=== PATIENT | female | born 2000 | race American Indian/Alaskan Native ===

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

== ENCOUNTER 2019-09-15 16:22 | Inpatient (IN) | payer MEDICAID ==
[2019-09-15] MEDS ORDERED: Misoprostol 400 MCG (4 X 100 MCG TAB) RECTAL PRN (17:43)
[2019-09-15] MEDS ORDERED: Sodium Chloride 0.9% 10 ML Syringe FLUSH PRN (17:43)
[2019-09-15] MEDS ORDERED: Ondansetron 4 MG/2 ML SDV IVPUSH PRN (17:43)
[2019-09-15] MEDS ORDERED: Carboprost Tromethamine 250 MCG/1 ML Amp IM PRN (17:43)
[2019-09-15] MEDS ORDERED: Tranexamic Acid 1,000 MG in Sodium Chloride 0.9% 100 ML IV PRN (17:43)
[2019-09-15] MEDS ORDERED: Lactated Ringers 1,000 ML IV ONE (17:43)
[2019-09-15] MEDS ORDERED: Acetaminophen 325 MG Tab PO PRN (17:43)
[2019-09-15] MEDS ORDERED: Lidocaine 1% 30 ML SDV INJECT PRN (17:43)
[2019-09-15] MEDS ORDERED: Methylergonovine 0.2 MG/1 ML Amp IM PRN (17:43)
[2019-09-15] MEDS ORDERED: Oxytocin/Normal Saline 30 UNIT/500 ML BAG IV SCH (17:45)
[2019-09-15] MEDS ORDERED: metroNIDAZOLE 250 MG Tab PO ONE (18:00)
[2019-09-15] MEDS: Lactated Ringers 1,000 ML IV SCH (18:12)
[2019-09-15] MEDS: Oxytocin/Normal Saline 30 UNIT/500 ML BAG IV SCH (18:13)
--- NOTE | 2019-09-15 19:32 | OBOUT ---
DATE: 09/15/2019 DATE AND TIME OF NST: 09/15/2019. Time, 1632 to 1652. REASON FOR NST: 1. Intrauterine at 37-5/7 weeks, by 6-week ultrasound. 2. Spontaneous rupture of membranes at approximately 10 a.m.. 3. History of trichomoniasis and positive on admission. Treated in the past. 4. History of BV, treated in the past. 5. Positive UDS for THC at [facility] in the past. 6. GBS negative. 7. G1, P0. NST INTERPRETATION: During this time period, heart tone baseline was approximately 135 and least two 15 x 15 beats per minute accelerations, making this strip reactive and also reassuring. Tocometer reveals forward contractions, minimally felt by the patient. ASSESSMENT: Reactive and reassuring with some contractions minimally felt by the patient. PLAN: At the current time of dictation, awaiting labs. AmniSure was positive and wet prep was notable for trichomoniasis and waiting rapid COVID at this point in time. [facility] /[id number] MTDAnnette
--- NOTE | 2019-09-15 20:17 | HP ---
PATIENT IDENTIFICATION: Penelope Chavira is a 19-year-old, G1, P0, intrauterine at 37-5/7 weeks by a 6-week ultrasound, who presents with vaginal leaking. HISTORY OF PRESENT ILLNESS: Approximately at 10:00 a.m., on the date of admission, the patient was sleeping, woke up, and noticed vaginal leaking, described as clear fluid, kept coming on, time made it worse, described as clear in nature, and associated with mild cramps felt in the lower abdomen. With this in context, she has had a history of trichomoniasis during this and was positive upon admission and history of BV as well and states that she has been treated in the past. She also had a positive urine drug screen for THC at [facility] in the past, and she is GBS negative in the third trimester. Records were called for, reviewed as below, and supplemented by patient history. [facility]: ABO, blood type O positive, negative antibody, rubella immune, RPR nonreactive, negative hepatitis B surface antigen, hep C, HIV, GC, and Chlamydia. Wet prep positive for trich, and treated in the past. Throughout this urine drug screen positive for THC. One-hour GTT was 112. AFPM-4 screen was negative and GBS was negative on 09/03/2019. ALLERGIES: None. MEDICATIONS: vitamins. PAST MEDICAL/PAST SURGICAL HISTORY: Remarkable for having history of pneumoniae; bronchitis; angioedema, treated with steroids in the past. Cutting with anxiety and depression. FAMILY HISTORY: Sister with hereditary spherocytosis. Negative family history of bleeding problems, anesthesia problems, or defects otherwise. SOCIAL HISTORY: The patient lives in [place] with the father of baby, Simran Monroy. She has a [place] as a pet. She denies any alcohol, tobacco, or drug use, although she had a positive urine drug screen in the past. REVIEW OF SYSTEMS: Otherwise reviewed and felt to be noncontributory other than above. OBJECTIVE: Vital Signs: Blood pressure 124/75, heart rate 88, and the patient feels afebrile. Appearance: Female appears stated age, acting appropriate. Nontoxic appearance. HEENT: Head is atraumatic EOMs are intact. PERRLA. No scleral icterus. No obvious otorhinorrhea. Mucous membranes moist. Neck: No obvious tenderness. Lungs: Clear to auscultation bilaterally. No increased work of breathing. Heart: S1 and S2. Regular rate and rhythm. Abdomen: Gravid. Mickey's indeterminate. Nontender and nondistended. Bowel sounds are positive. No organomegaly, pulsatile masses, or obvious hernias. No rebound or guarding with monitors applied. Genitourinary: Normal external female genitalia. Normal position and presentation of urethra. Vaginal exam reveals it to be 1.5 to 2 cm, 80% effaced, 0 to -1 station, vertex suspected, and leaking some clear fluid with mild bloody show. Extremities: No peripheral edema. Deep tendon reflexes 2 to 3 out of 4 bilaterally and symmetric in lower extremities. Psych: Mood and affect congruent. Judgment and insight intact. Skin: Without any cyanosis, clubbing, or jaundice. INVESTIGATIONS: AmniSure was positive. Rapid COVID KACI test was negative for COVID-19, and her wet prep was remarkable for a few clue cells and trichomoniasis that was noted. NST is found to be reactive and reassuring with heart tone baseline of around the 135 range. Tocometer reveals contractions every 3 to 5 minutes on an average. ASSESSMENT: 1. Intrauterine at 37-5/7 weeks by a 6-week ultrasound. 2. Spontaneous rupture of membranes at approximately 10:00 a.m. on date of admission. 3. History of trichomoniasis in the treated, and positive on admission. 4. History of bacterial vaginosis in the , treated. 5. Positive urine drug screen for tetrahydrocannabinol at [facility] early in . 6. Group B Streptococcus negative. 7. 1, para 0. PLAN: The patient will be admitted. Labs will be done including urine drug screen. Due to it being approximately 8 hours since rupture of membranes and no what appeared to be any true active labor pattern, we will start Pitocin 2 milliunits, up by 2 milliunits per minute every 30 minutes, and follow clinically and closely. Plans were discussed the patient. She understands and agrees. Please see orders for further details as well. [facility] /[id number] GOUVERNEUR HEALTHAnnette
[2019-09-15] MEDS ORDERED: fentaNYL 100 MCG/2 ML SDV IVPUSH PRN (23:07)
[2019-09-15] MEDS ORDERED: hydrOXYzine HCl 25 MG Tab PO PRN (23:07)
[2019-09-16] MEDS: Lactated Ringers 1,000 ML IV SCH ×3 (02:33→15:59)
--- NOTE | 2019-09-16 11:28 | PN ---
DATE: 09/16/2019 SUBJECTIVE: The patient continues to leak vaginal fluid. Last night, she did have some contractions that she said were somewhat strong, felt in her lower abdomen. OBJECTIVE: Pitocin maxed out at 16 milliunits per minute per nurse, was stopped for approximately at least an hour as she had contractions every 1-1/2 minutes at times. heart tones in the 130s and felt to be reassuring. Tocometer reveals contractions now 4 minutes apart on average. Vaginal exam reveals her to be 2 cm, 80% to 90% effaced, 0 to -1 station, vertex suspected. An IUPC was placed after discussion with the patient. ASSESSMENT: 1. Intrauterine , now at 37 and 6/7 weeks by 6 weeks ultrasound with spontaneous rupture of membranes at 10 a.m. yesterday, so nearing approximately 22 hours of rupture of membranes, with continued leaking. 2. History of trichomoniasis and bacterial vaginosis in the past and treated in the past and treated here upon admission. 3. Positive urine drug screen for THC at [facility] in the past. Urine drug screen negative yesterday on admission. 4. Group B Streptococcus negative. 5. G1, P0. PLAN: Discussed with the patient proceeding with IUPC, Pitocin augmentation. We will continue to follow clinically and closely at this point in time. We will watch for any signs and symptoms of infection, fever, tachycardia, or other concerns. The patient understands and agrees with the above. [facility] /[id number]
[2019-09-16] MEDS ORDERED: Sodium Bicarbonate 4.2% 2.5 MEQ/5 ML SDV ONE ×2 (11:59→15:45)
[2019-09-16] MEDS ORDERED: Sodium Chloride 0.9% 20 ML SDV ONE (11:59)
[2019-09-16] MEDS ORDERED: fentaNYL 100 MCG/2 ML SDV ITHECAL ONE (11:59)
[2019-09-16] MEDS ORDERED: EPINEPHrine 1 MG/1 ML Amp ONE (15:45)
[2019-09-16] MEDS ORDERED: fentaNYL 100 MCG/2 ML SDV ONE (15:45)
--- NOTE | 2019-09-16 16:03 | PCM.SN.2 ---
- Free Text/Narrative Note: Intrathecal. Sitting position, sterile prep and drape. 1% lidocaine w bicarb for skinwheal to L2 L3 interspace. Introducer, 24 ga pencan x 1. Pos CSF, neg heme, neg parasthesia. 0.1 ml pf 1:1000 epi, 20 mcg pf sufenta. 30 mcg pf fentanyl, 0.4 ml pf ns and 6 mg of 0.75% pf bupivacaine injected after CSF aspiration. Pt to L lateral position. Procedure time 1545 to 1615
[2019-09-16] MEDS: Oxytocin/Normal Saline 30 UNIT/500 ML BAG IV SCH ×2 (18:08→19:42)
[2019-09-16] MEDS ORDERED: cefTRIAXone 1 GM in Sodium Chloride 0.9% 50 ML IV ONE (18:29)
--- NOTE | 2019-09-16 19:39 | PN ---
DATE: 09/16/2019 SUBJECTIVE: The patient has been feeling contractions, requesting something for pain. OBJECTIVE: heart tones in the 120s to 130s range. Tocometer reveals contractions every 1-1/2 minutes. IUPC has been placed. Pitocin has been increased. Last blood pressure 133/69, heart rate 63. The patient is afebrile. Vaginal exam reveals her to be 3 cm, 80% effaced, 0 to negative 1 station, vertex suspected, and bag of water was felt, and artificial rupture of membranes done with [place] yields a minimal amount of clear fluid with mild bloody show noted with exam on examiner's fingers. ASSESSMENT AND PLAN: Intrauterine now at 37-6/7 weeks, spontaneous rupture of membranes at 10 a.m. yesterday with suspected second bag noted today with exam as above with artificial rupture of membranes yielding some fluid. We will continue on Pitocin augmentation. IUPC is in place. For pain, we will give fentanyl and follow clinically and closely. The patient understands and agrees with the above treatment plan. [facility] /[id number]
[2019-09-17] MEDS ORDERED: Benzocaine/Menthol 20%-0.5% Spray 56 GM Canister TOP PRN ×2 (00:50→07:21)
[2019-09-17] MEDS: Ibuprofen 800 MG Tab PO PRN ×3 (01:24→21:12)
[2019-09-17] MEDS ORDERED: Zolpidem 5 MG Tab PO PRN (07:21)
[2019-09-17] MEDS ORDERED: Sodium Chloride 0.9% 10 ML Syringe FLUSH PRN (07:21)
[2019-09-17] MEDS ORDERED: Simethicone 80 MG Tab.Chew PO PRN (07:21)
[2019-09-17] MEDS ORDERED: Oxytocin 10 Units/1 ML SDV IM PRN (07:21)
[2019-09-17] MEDS: Ferrous Sulfate 325 MG Tab PO SCH (08:31)
[2019-09-17] MEDS: Docusate Sodium 100 MG Cap PO PRN ×2 (08:31→21:09)
[2019-09-17] MEDS: Prenatal Multivitamin with Calcium/Folic Acid/Iron Tab PO SCH (08:32)
--- NOTE | 2019-09-17 09:13 | PN ---
DATE: 09/17/2019 day #1. SUBJECTIVE: The patient is tolerating p.o., was ambulating, urinating, passing flatus. States her bleeding is "normal." She denies any chest pain, shortness of breath, or lightheadedness. OBJECTIVE: Vital Signs: Temperature 98.2, heart rate 80, blood pressure 102/58, respiratory rate 16. Lungs: Clear to auscultation bilaterally. Heart: S1, S2. Regular rate and rhythm. Abdomen: Firm uterus, -2 below umbilicus. Extremities: No peripheral edema. No calf pain. LABORATORY DATA: White cell count 15.7, hemoglobin 9.4, platelets 272. ASSESSMENT AND PLAN: 1. day #1, status post spontaneous vaginal delivery, complicated by hemorrhage with uterine atony, retained placental membranes requiring bimanual and finger uterine curettage, and also received treatment of Cytotec 800 mcg rectally. 2. Anemia, acute blood loss. Hemoglobin dropped from 11.3 to 9.4. Currently, asymptomatic. Vital signs stable. Continue to follow clinically and closely. Start iron today, and will ambulate, and follow for any symptoms. Possible discharge tomorrow. Discussed with the patient. [facility] /[id number]
--- NOTE | 2019-09-17 11:21 | PN ---
DATE: 09/16/2019 SUBJECTIVE: The patient is somewhat comfortable status post intrathecal. OBJECTIVE: heart tones in the 130s to 140s range with variable deceleration noted when catheterization of the bladder occurred. Vaginal exam reveals her to be anterior lip. Blood pressure 120/60, heart rate 57. ASSESSMENT/PLAN: Nearing second stage of labor with deceleration noted. Bladder will be catheterized. We will evaluate the patient in second stage of labor. We will start pushing and follow clinically and closely thereafter. [facility] /[id number]
--- NOTE | 2019-09-17 12:14 | PN ---
DATE: 09/16/2019 SUBJECTIVE: The patient is comfortable status post intrathecal. OBJECTIVE: heart tones in the 130s to 140s range, felt to be reassuring. Tocometer reveals contractions every 1-1/2 to 2 minutes apart. Vaginal exam reveals her to be 7 cm, 100% effaced, 0 station. Vertex suspected. Blood pressure 99/45. There was noted to be a variable deceleration with movement and positional changes, and this resolved, and at current time of dictation, there is another variable, and we will re-evaluate the patient. [facility] /[id number]
--- NOTE | 2019-09-17 12:21 | PN ---
DATE: 09/16/2019 As the patient did have a bimanual exam with finger uterine curettage, we will give her Rocephin 1 g IV as soon as possible, and due to her hemorrhage, we will recheck a CBC early in the morning at 6 a.m. and follow clinically and closely at this time. [facility] /[id number]
--- NOTE | 2019-09-17 14:04 | DEL ---
DATE: 09/16/2019 PREOPERATIVE DIAGNOSES: 1. Intrauterine at 37-6/7 weeks by 6-week ultrasound. 2. Spontaneous rupture membranes at 10 a.m. on day prior to delivery. 3. History of trichomoniasis in and treated and positive on admit - treated. 4. History bacterial vaginosis in the . 5. Positive urine drug screen for tetrahydrocannabinol at [facility] with negative urine drug screen upon admission. 6. Group B Streptococcus negative. 7. G1, P0. 8. Rupture of membranes 32 hours prior to delivery POSTOPERATIVE DIAGNOSES: 1. Intrauterine at 37-6/7 weeks by 6-week ultrasound, delivered. 2. Spontaneous rupture membranes at 10 a.m. on day prior to delivery. 3. History of trichomoniasis in and treated and positive on admit - treated. 4. History bacterial vaginosis in the . 5. Positive urine drug screen for tetrahydrocannabinol at [facility] with negative urine drug screen upon admission. 6. Group B Streptococcus negative. 7. G1, P0. 8. hemorrhage with estimated blood loss of 700 mL. 9. Uterine atony requiring Cytotec 800 mcg rectally as well as bimanual exam. 10.Retained placental membranes requiring bimanual exam and finger uterine curettage and removal of placental membranes. 11.Bilateral posterior vaginal lacerations - repaired as bleeding. 12.Right labial abrasions, non-repaired, nonbleeding after discussion with the patient. 13. Rupture of membranes 32 hours prior to delivery PROCEDURE PERFORMED: 1. On 09/15/2019, nonstress test, Pitocin augmentation. 2. On 09/16/2019, intrauterine pressure catheter, artificial rupture of membranes, spontaneous vaginal delivery with bilateral posterior vaginal lacerations - repaired and bimanual exam with finger uterine curettage with removal of placental membranes. ANESTHESIA/ANALGESIA: The patient did receive an intrathecal in the first stage of labor. FINDINGS: Female, scores and weight pending. ESTIMATED BLOOD LOSS: 700 mL. SUMMARY OF EVENTS: The patient is a 19-year-old G1, P0 intrauterine on date of delivery at 36-6/7 weeks by 6-week ultrasound with spontaneous rupture of membranes on the day prior at 10 a.m. with delivery around 6 p.m. who was admitted on the above date with above diagnoses, underwent Pitocin augmentation throughout the night. Had slow progression in terms of cervical dilation and was serially evaluated and noted to be 3 cm and have a second bag of water that was artificially ruptured with Pitocin continued as well as IUPC in place. Subsequently, her cervical dilation progressed. She was given an intrathecal in the first stage of labor. She was found to be complete. I was called to the room, donned sterile gown and gloves, and with the patient pushing with contractions, vertex was delivered in AMI presentation. Anterior shoulder for delivery did require a modified Jack type maneuver, and subsequently this was delivered followed by posterior shoulder as well as rest of the infant with minimal difficulty. Mouth and nares were suctioned. Cord was doubly clamped and cut, and was brought over to team/warmer for resuscitation. After resuscitation, attention was then made on the patient, and approximately 10 mL of cord blood was obtained for laboratories. Placenta then delivered with gentle cord traction and fundal massage. Atony was noted at that time. Fundal massage ensued as well as increase in Pitocin to 999, and Cytotec was called for, and 800 mcg was given rectally. New sterile gloves were then donned. While doing fundal massage, evaluation of vaginal area did reveal some retained placental membranes, which were attempted to be grasped with ring forceps, and approximately 1.5 cm of placental membrane piece was removed with more seen trailing into the uterus. Subsequently bimanual exam with finger uterine curettage was done, removing approximately 6 cm section of placental membranes. Finger uterine curettage was done on lining of the uterus and lower uterine segment, and subsequently bleeding significantly decreased. Perineum, vagina, and perirectal areas were then examined and noted to have a right labial abrasion, nonbleeding and non-repaired after discussion with patient and bilateral posterior vaginal lacerations of approximately 1.5 cm on each side with bleeding and a rcebqa-hu-nptzy stitch was applied over these areas using 3- 0 Vicryl. Hemostasis was improved thereafter. Mother and are currently stable at time of dictation. [facility] /[id number] CELINA
[2019-09-18] MEDS: Ibuprofen 800 MG Tab PO PRN (08:28)
[2019-09-18] MEDS: Ferrous Sulfate 325 MG Tab PO SCH (08:28)
[2019-09-18] MEDS: Prenatal Multivitamin with Calcium/Folic Acid/Iron Tab PO SCH (08:28)
[2019-09-18] MEDS: Docusate Sodium 100 MG Cap PO PRN (08:28)
[2019-09-18 10:54] VITALS: BP 108/76; PULSE 76
--- NOTE | 2019-09-18 21:57 | DISCH ---
ADMITTING DIAGNOSES: 1. Intrauterine at 37 and 5/7 weeks by 6 week ultrasound. 2. Spontaneous rupture of membranes at 10 a.m. on date of admission. 3. History of trichomoniasis in the past and positive on admission - treated in past and on admission. 4. History of bacterial vaginosis. 5. Positive UDS for THC at [place]. Negative urine drug screen upon admission. 6. GBS negative. 7. G1, P0. DISCHARGE DIAGNOSES: 1. Intrauterine at 37 and 6/7 weeks by 6 week ultrasound, delivered. 2. Spontaneous rupture of membranes at 10 a.m. on date of admission. 3. History of trichomoniasis in the past and positive on admission - treated in past and on admission. 4. History of bacterial vaginosis. 5. Positive UDS for THC at [place]. Negative urine drug screen upon admission. 6. GBS negative. 7. G1, P0. 8. hemorrhage with EBL 700 mL. 9. Uterine atony requiring 800 mcg of Cytotec rectally. 10.Retained placental membranes requiring bimanual exam and finger uterine curettage. 11.Bilateral posterior vaginal laceration - repaired as it was bleeding. 12.Right labial abrasion nonbleeding, non repaired after discussion with the patient. 13.Anemia of acute blood loss with hemoglobin dropping from 11.3 down to 9.4, day #1. HISTORY OF PRESENT ILLNESS: Please see H and P. SUMMARY OF HOSPITAL COURSE: The patient was admitted on the above date with above diagnoses. Underwent NST and Pitocin and then required IUPC and a second bag was noted with artificial rupture of membranes with subsequent spontaneous vaginal delivery with repair and bimanual finger uterine curettage with removal of placental membranes on 09/16/2019. For date of procedures, please see progress notes. The patient was followed closely because of her trichomoniasis. She was started on 2 g of Flagyl p.o. x1 and then she also had spontaneous rupture of membranes at 10 a.m. on date of admission. This was confirmed by AmniSure and seeing vaginal fluid leaking that was clear in nature. The patient was followed closely. Required Pitocin, IUPC, and then artificial rupture of membranes second bag, then went on to have more cervical change and a spontaneous vaginal delivery yielding a female with score 6 and 9, weighing 7 pounds 12 ounces (3515 g). Rupture of membranes was at approximately 32 hours at the time of delivery. Please see progress note for further details in terms of day #1. day #2, date of discharge, the patient was tolerating p.o., ambulating, urinating, passing flatus. PHYSICAL EXAMINATION: Last Set Of Vitals: Temperature 98.1, heart rate 76, blood pressure 108/76, respiratory rate 16. Lungs: Clear to auscultation bilaterally. Heart: S1 and S2. Regular rate and rhythm. Abdomen: Firm, -2 below umbilicus. Extremities: No peripheral edema. No calf pain. LABORATORY DATA: Hemoglobin dropped noted as above, and on 09/18/2019, white cell count was 11.5, hemoglobin stable at 9.5, and platelets of 292. CONDITION ON DISCHARGE COMPARED TO CONDITION ON ADMISSION: Improved. INSTRUCTIONS: 1. Diet as tolerated. 2. Activity: No lifting more than 20 pounds. No sit-ups or straining and pelvic rest for the next 6 weeks with immediate return to fertility discussed with the patient. 3. Reason to go to the emergency room was discussed with the patient in detail including but not limited to temperature greater than 100.4, foul-smelling discharge, red or tender breasts, or increased vaginal bleeding. DISCHARGE MEDICATIONS: 1. Csri-mpq-idefzsm ibuprofen for pain. 2. Recommend vitamins and iron sulfate. FOLLOWUP: In 6 weeks . Did discuss with the patient importance of followup and ramifications of not doing so, as well as reason to go to emergency room in regard to her . She understands and agrees. [facility] /[id number]
== END 2019-09-18 12:00 | disposition home or self-care (01) | DRG 806 ==
LOC: DL.OBCHECK 16:22 → DL.OB 17:39 → OBSVTOIN 18:01
PROVIDERS: ADMIT Family Medicine; ATTEND Family Medicine
PROC: 10E0XZZ Delivery of Products of Conception, External Approach (ICD-10-PCS; principal; 2019-09-15)
PROC: 10907ZC Drainage of Amniotic Fluid, Therapeutic from Products of Conception, Via Natural or Artificial Opening (ICD-10-PCS; 2019-09-15)
PROC: 0UQGXZZ Repair Vagina, External Approach (ICD-10-PCS; 2019-09-15)
PROC: 10H07YZ Insertion of Other Device into Products of Conception, Via Natural or Artificial Opening (ICD-10-PCS; 2019-09-15)
PROC: 3E0R3BZ Introduction of Anesthetic Agent into Spinal Canal, Percutaneous Approach (ICD-10-PCS; 2019-09-15)
PROC: 00HU33Z Insertion of Infusion Device into Spinal Canal, Percutaneous Approach (ICD-10-PCS; 2019-09-15)
DX: O76 Abnormality in fetal heart rate and rhythm complicating labor and delivery (principal); D62 Acute posthemorrhagic anemia; Z37.0 Single live birth; O72.1 Other immediate postpartum hemorrhage; O71.4 Obstetric high vaginal laceration alone; Z3A.37 37 weeks gestation of pregnancy; O99.02 Anemia complicating childbirth; A59.9 Trichomoniasis, unspecified; Z11.59 Encounter for screening for other viral diseases; Z28.82 Immunization not carried out because of caregiver refusal
CPT/HCPCS: 01967; 36415; 59025; 59409; 80305-QW; 84112; 85027; 87210; A9270-GY; J0696; J2405; J2590; J3010; J7050; J7120; U0002

== ENCOUNTER 2020-05-10 10:29 | Emergency (ER) | payer MEDICAID ==
[2020-05-10 10:59] VITALS: BP 135/84; PULSE 85
--- NOTE | 2020-05-10 11:19 | EDM.PDOC ---
ED HPI GENERAL MEDICAL PROBLEM - General Chief Complaint: Lower Extremity Injury/Pain Stated Complaint: RIGHT KNEE HURT WHILE FALLING. Time Seen by Provider: 05/10/20 11:00 Source of Information: Reports: Patient, RN, RN Notes Reviewed History Limitations: Reports: No Limitations - History of Present Illness INITIAL COMMENTS - FREE TEXT/NARRATIVE: Patient presents to the ED via personal vehicle for complaints of right inferior and posterior knee pain. The patient reports falling onto her flexed right knee two days ago while stepping up onto a curb. She characterizes the pain as sharp and feels as if the joint is unstable. The patient states she has tried walking the pain off, but states that has not helped. She has not applied ice heat or taken lztt-[id number]-wljjtoa analgesics for this pain. She denies pain while at rest but rates the pain at an eight while bearing weight and walking. She denies a history of injury to this extremity. Right Knee Pain Score (Numeric/FACES): 9 - Related Data Allergies Allergy/AdvReac Type Severity Reaction Status Date / Time No Known Allergies Allergy Verified 05/10/20 10:53 Home Meds: Home Meds . [No Known Home Meds] 05/10/20 [History] Past Medical History - Past Health History Medical/Surgical History: Denies Medical/Surgical History SLEEP TECH History: Reports: Other SLEEP TECH History: miscarriage Psychiatric History: Reports: Anxiety - Past Surgical History HEENT Surgical History: Reports: Oral Surgery Social & Family History - Family History Family Medical History: No Pertinent Family History - Tobacco Use Tobacco Use Status *Q: Current Every Day Tobacco User Years of Tobacco use: 0 Packs/Tins Daily: 0.2 - Caffeine Use Caffeine Use: Reports: Soda - Recreational Drug Use Recreational Drug Use: No - Living Situation & Occupation Living situation: Reports: with Family Occupation: Student Review of Systems - Review of Systems Review Of Systems: Comprehensive ROS is negative, except as noted in HPI. ED EXAM, GENERAL - Physical Exam Exam: See Below Exam Limited By: No Limitations General Appearance: Alert, No Apparent Distress Eye Exam: Bilateral Eye: EOMI, Normal Inspection, PERRL (3mm) Respiratory/Chest: No Respiratory Distress, Lungs Clear, Normal Breath Sounds, No Accessory Muscle Use, Chest Non-Tender Cardiovascular: Normal Peripheral Pulses, Regular Rate, Rhythm, No Edema, No Gallop, No JVD, No Murmur, No Rub Peripheral Pulses: 2+: Radial (L), Radial (R), Dorsalis Pedis (L), Dorsalis Pedis (R) Back Exam: Normal Inspection, Full Range of Motion Extremities: Normal Capillary Refill, Leg Pain (Right inferior and posterior knee pain), Limited Range of Motion (Pain with flexion and extension of joint as well as weight bearing). No: Joint Swelling, Mottled, Pallor, Redness Neurological: Alert, Oriented, CN II-XII Intact, Normal Cognition, No Motor/Se nsory Deficits, Abnormal Gait (Right limping gait) Psychiatric: Normal Affect, Normal Mood Skin Exam: Warm, Dry, Intact, Normal Color, No Rash. No: Ecchymosis, Erythema, Mottled, Pallor, Petechiae Course - Vital Signs Last Recorded V/S: Last Vital Signs Temp 97.2 F 05/10/20 10:54 Pulse 85 05/10/20 10:54 Resp 16 05/10/20 10:54 BP 135/84 05/10/20 10:54 Pulse Ox 100 05/10/20 10:54 - Orders/Labs/Meds Meds: Medications Discontinued Medications Generic Name Dose Route Start Last Admin Trade Name Freq PRN Reason Stop Dose Admin Ibuprofen 800 mg 05/10/20 11:36 05/10/20 11:48 Ibuprofen 800 Mg Tab PO 05/10/20 11:37 800 mg ONETIME ONE Administration - Radiology Interpretation Free Text/Narrative:: [facility] Final Radiology Report Call: [phone] assistance Online chat: [email or web address] Name: MELBA WATT Age: 19Years F Date: 05/10/2020 SSN: -- : 2000 Study: CR KNEE 3V RT Requesting Physician: Tiffany Fallon Images: 3 Addl Studies: Provided Clinical History: Fall onto knee two days ago Contrast: Contrast Medium: Contrast Amount: Contrast Method: CONFIDENTIALITY STATEMENT This report is intended only for use by the referring physician, and only in accordance with law. If you received this in error, call [phone]. Page 1 of 1 PROCEDURE INFORMATION: Exam: XR Right Knee Exam date and time: 05/10/2020 11:21 AM Age: 19 years old Clinical indication: Swelling or effusion of joint; Knee; Additional info: Fall onto knee two days ago TECHNIQUE: Imaging protocol: XR Right knee. Views: 3 views. COMPARISON: No relevant prior studies available. FINDINGS: Bones/joints: Multiple views of the right knee demonstrate no evidence for fracture. There is normal mineralization and alignment. Joint spaces are well preserved. Soft tissues: Normal. IMPRESSION: Normal appearance of the right knee. No acute injury identified. Thank you for allowing us to participate in the care of your patient. Dictated and Authenticated by: Florian Childers MD 05/10/2020 11:29 AM Central Time ([place] & [place]) - Re-Assessments/Exams Free Text/Narrative Re-Assessment/Exam: 05/10/20 We will treat acute pain to right knee with ibuprofen 800mg PO. Xray of right knee unremarkable for acute findings; no evidence of fracture or dislocation appreciated. Discussed supportive cares for acute knee pain. Red flag signs and symptoms which would warrant reevaluation reviewed. Patient verbalized understanding and agreement with the plan of care. Departure - Departure Time of Disposition: 11:33 Disposition: Home, Self-Care 01 Condition: Good Clinical Impression: Pain of right knee after injury - Discharge Information *PRESCRIPTION DRUG MONITORING PROGRAM REVIEWED*: Not Applicable *COPY OF PRESCRIPTION DRUG MONITORING REPORT IN PATIENT FADY: Not Applicable Instructions: Acute Knee Pain, Adult, Dchn-[id number] Forms: ED Department Discharge Additional Instructions: 1.) Follow up with your primary care provider for further evaluation of acute knee pain, you may require an MRI if pain persists past 5 days. 2.) You may take ibuprofen (Advil/Motrin) 800mg every six hours, as pain and swelling persists. You may also take acetaminophen (Tylenol) 1000mg every six hours, as pain persists. You may stagger these medications so you are receiving a dose every three hours. After three days, decrease ibuprofen dose back to 400mg every six hours. 3.) You may apply ice to the affected area, as swelling persists; 20 minutes on every hour. 4.) You may use a compression sleeve to offer relief of swelling and offer mild stability. Sepsis Event Note (ED) - Evaluation Sepsis Screening Result: No Definite Risk - Focused Exam Vital Signs: Vital Signs Temp Pulse Resp BP Pulse Ox 05/10/20 10:54 97.2 F 85 16 135/84 100
--- NOTE | 2020-05-10 11:29 | CR ---
PROCEDURE INFORMATION: Exam: XR Right Knee Exam date and time: 05/10/2020 11:21 AM Age: 19 years old Clinical indication: Swelling or effusion of joint; Knee; Additional info: Fall onto knee two days ago TECHNIQUE: Imaging protocol: XR Right knee. Views: 3 views. COMPARISON: No relevant prior studies available. FINDINGS: Bones/joints: Multiple views of the right knee demonstrate no evidence for fracture. There is normal mineralization and alignment. Joint spaces are well preserved. Soft tissues: Normal. IMPRESSION: Normal appearance of the right knee. No acute injury identified.
[2020-05-10] MEDS ORDERED: Ibuprofen 800 MG Tab PO ONE (11:36)
== END 2020-05-10 11:49 | disposition home or self-care (01) ==
LOC: DL.ED 10:29
DX: M25.561 Pain in right knee (principal); Z72.0 Tobacco use
CPT/HCPCS: 73562; 99282; 99283; A9270

== ENCOUNTER 2022-01-31 15:10 | Emergency (ER) | payer MEDICAID ==
[2022-01-31 15:41] VITALS: BP 91/65; PULSE 81
[2022-01-31 16:22] LABS: CORONAVIRUS COVID-19 NAA NEGATIVE (NEGATIVE); RESPIRATORY SYNCYTIAL VIR NAA NEGATIVE (NEGATIVE)
== END 2022-01-31 15:48 ==
LOC: DL.ED 15:10
DX: Z53.21 Procedure and treatment not carried out due to patient leaving prior to being seen by health care provider (principal)
CPT/HCPCS: 0241U

== ENCOUNTER 2022-06-01 01:37 | Inpatient (IN) | payer MEDICAID ==
[2022-06-01] MEDS: Lactated Ringers 1,000 ML IV SCH ×2 (02:44→04:48)
[2022-06-01] MEDS ORDERED: Acetaminophen 325 MG Tab PO PRN (02:48)
[2022-06-01] MEDS ORDERED: Lidocaine 1% 30 ML SDV INJECT PRN (02:48)
[2022-06-01] MEDS ORDERED: Lactated Ringers 1,000 ML IV ONE (02:48)
[2022-06-01] MEDS ORDERED: Ondansetron 4 MG/2 ML SDV IVPUSH PRN (02:48)
[2022-06-01] MEDS ORDERED: Misoprostol 400 MCG (4 X 100 MCG TAB) RECTAL PRN (02:48)
[2022-06-01] MEDS ORDERED: Tranexamic Acid 1,000 MG in Sodium Chloride 0.9% 100 ML IV PRN (02:48)
[2022-06-01] MEDS ORDERED: Carboprost Tromethamine 250 MCG/1 ML Amp IM PRN (02:48)
[2022-06-01] MEDS ORDERED: Methylergonovine 0.2 MG/1 ML Amp IM PRN (02:48)
[2022-06-01] MEDS ORDERED: Sodium Chloride 0.9% 10 ML Syringe FLUSH PRN (02:48)
[2022-06-01] MEDS ORDERED: Oxytocin/Normal Saline 30 UNIT/500 ML BAG IV SCH ×2 (03:00)
[2022-06-01] MEDS ORDERED: Phenylephrine HCl In 0.9% NaCl 1 MG/10 ML Syringe IVPUSH PRN (04:51)
[2022-06-01] MEDS ORDERED: ePHEDrine 50 MG/ML SDV IVPUSH PRN (04:51)
[2022-06-01] MEDS ORDERED: Ropivacaine 200 MG in Premix Bag 1 BAG EPIDUR SCH (05:00)
[2022-06-01] MEDS ORDERED: Oxytocin 10 Units/1 ML SDV IM PRN (05:37)
[2022-06-01] MEDS ORDERED: Benzocaine/Menthol 20%-0.5% Spray 78 GM Cannister TOP PRN (05:37)
[2022-06-01] MEDS ORDERED: Simethicone 80 MG Tab.Chew PO PRN (05:37)
[2022-06-01] MEDS ORDERED: Witch Hazel Medicated Pads 100/Jar TOP PRN (05:37)
[2022-06-01] MEDS ORDERED: Zolpidem 5 MG Tab PO PRN (05:37)
[2022-06-01] MEDS: Prenatal Multivitamin with Calcium/Folic Acid/Iron Tab PO SCH (08:26)
[2022-06-01] MEDS: Ferrous Sulfate 325 MG Tab PO SCH (08:27)
[2022-06-01] MEDS: Docusate Sodium 100 MG Cap PO PRN (08:27)
[2022-06-01] MEDS: Sodium Chloride 0.9% 10 ML Syringe FLUSH SCH ×2 (09:27→21:00)
[2022-06-01] MEDS: Ibuprofen 800 MG Tab PO PRN (17:46)
[2022-06-01] MEDS: Acetaminophen 325 MG Tab PO PRN (17:47)
[2022-06-02] MEDS: Ibuprofen 800 MG Tab PO PRN ×2 (03:43→08:01)
[2022-06-02] MEDS: Prenatal Multivitamin with Calcium/Folic Acid/Iron Tab PO SCH (08:01)
[2022-06-02] MEDS: Ferrous Sulfate 325 MG Tab PO SCH (08:01)
[2022-06-02] MEDS: Acetaminophen 325 MG Tab PO PRN (08:01)
[2022-06-02] MEDS: Docusate Sodium 100 MG Cap PO PRN (08:01)
[2022-06-02] MEDS: Sodium Chloride 0.9% 10 ML Syringe FLUSH SCH (08:14)
[2022-06-02 08:18] VITALS: BP 104/72; PULSE 75
== END 2022-06-02 09:25 | disposition home or self-care (01) | DRG 807 ==
LOC: DL.OBCHECK 01:37 → DL.OB 02:18 → OBSVTOIN 05:22
PROVIDERS: ADMIT Family Medicine; ATTEND Family Medicine
PROC: 10E0XZZ Delivery of Products of Conception, External Approach (ICD-10-PCS; principal; 2022-06-01)
PROC: 00HU33Z Insertion of Infusion Device into Spinal Canal, Percutaneous Approach (ICD-10-PCS; 2022-06-01)
PROC: 3E0R3BZ Introduction of Anesthetic Agent into Spinal Canal, Percutaneous Approach (ICD-10-PCS; 2022-06-01)
DX: O42.02 Full-term premature rupture of membranes, onset of labor within 24 hours of rupture (principal); Z37.0 Single live birth; O99.02 Anemia complicating childbirth; D64.9 Anemia, unspecified; Z3A.38 38 weeks gestation of pregnancy
CPT/HCPCS: 36415; 59409; 84112; 85027; A9270-GY; J2405; J2590; J2795; J3490; J7120

== ENCOUNTER 2022-07-25 12:38 | Emergency (ER) | payer MEDICAID ==
[2022-07-25] MEDS ORDERED: Silver Sulfadiazine 1% Crm 50 GM Tube TOP ONE (12:54)
[2022-07-25] MEDS ORDERED: Lidocaine 5% Oint 35.44 GM Tube TOP ONE (12:54)
[2022-07-25 13:00] VITALS: BP 127/92; PULSE 87
== END 2022-07-25 14:29 | disposition home or self-care (01) ==
LOC: DL.ED 12:38
DX: S52.501A Unspecified fracture of the lower end of right radius, initial encounter for closed fracture (principal); S52.601A Unspecified fracture of lower end of right ulna, initial encounter for closed fracture; T21.24XA Burn of second degree of lower back, initial encounter; T22.231A Burn of second degree of right upper arm, initial encounter; X08.8XXA Exposure to other specified smoke, fire and flames, initial encounter
CPT/HCPCS: 29125; 73110-RT; 73130-RT; 73630-LT; 99283; A9270-GY